=== PATIENT | female | born 2000 | race Caucasian/White ===

== ENCOUNTER 2025-03-11 20:55 | Emergency (ER) | payer BC, SELFPAY ==
[2025-03-11 21:04] VITALS: BP 143/95
[2025-03-11 21:16] VITALS: BP 129/77
[2025-03-11 22:00] VITALS: BP 114/68
--- NOTE | 2025-03-11 22:45 | ED.GENMED ---
History of Present Illness
General
Chief Complaint: Allergic Reaction
Source: patient
Exam Limitations: none
Time Seen by Provider: 03/11/25 22:36
Nursing documentation reviewed up to this point in time: agreed with
History of Present Illness
History of Present Illness:
This is a 24-year-old female with history of tree nut and walnut allergies. She inadvertently consumed walnuts tonight around 6 PM and immediately developed scratchy, itchy throat that then progressed to generalized skin redness and itching. She
did not have her EpiPen with her but did take a dose of Benadryl around 6:30 PM. Throat itching and scratching has improved but has not resolved. Generalized skin redness, itching has improved mildly but has not resolved. She admits to mild
nausea initially which has since resolved. No abdominal pain or diarrhea, no cough no shortness of breath.
She has had similar episodes in the past which generally improve with Benadryl. She has never used her EpiPen.
She takes no medicines on a daily basis.
Denies risk of , last menstrual period normal and on time 3 weeks ago.
Past History
Past History
ED Past Medical History: Other (Tree nut/walnut allergy)
ED Past Surgical History: None
Social History
Tobacco: Non-smoker
Alcohol: Occasional
Personal: Single
Living: with family
Employment: Employed (Teacher)
Family History
Family History: Other (Noncontributory)
Phy Exam
Physical Exam
Physical Exam:
GENERAL: 24-year-old female appears her stated age, bright and alert, pleasant, appears in no acute distress. Intermittently scratching/rubbing at her forearms. 2 girlfriends accompanying.
EYE: anicteric
NECK: Supple, nontender, no meningismus, no significant adenopathy.
ENT: posterior pharynx is clear, oral mucosa is moist. TM clear b/l, nares patent. No angioedema.
CARDIAC: Regular rate and rhythm. no murmur.
LUNGS: Clear breath sounds bilaterally, no acute respiratory distress, no wheezes/rales/rhonchi
ABDOMEN: Soft, nondistended, without focal tenderness, normoactive BS.
NEUROLOGICAL: Alert and oriented x3, no focal neuro deficits.
SKIN: Warm and dry, normal color, skin intact. Mild to moderate erythema globally to upper trunk, upper extremities with patchy erythema to abdomen.
MUSCULOSKELETAL: No C/C/E. peripheral pulses are full and equal b/l. No palpable tenderness.
PSYCH: Normal and appropriate interaction.
Course
Orders/Labs/Results
Orders:
Orders
03/11/25 22:44
EPINEPHrine PF [Adrenalin] 0.3 mg IM NOW STA
Famotidine [Pepcid] 20 mg PO NOW STA
Prednisone [Deltasone] 40 mg PO NOW STA
Vital Signs
Initial and Last Documented VS:
Initial Vital Signs
Temp Pulse Resp BP Pulse Ox
98.4 F 98 18 143/95 100
03/11/25 21:04 03/11/25 21:04 03/11/25 21:04 03/11/25 21:04 03/11/25 21:04
Last Documented Vital Signs
Temp Pulse Resp BP Pulse Ox
98.4 F 84 14 115/71 99
03/11/25 21:04 03/11/25 23:00 03/11/25 23:00 03/11/25 23:00 03/11/25 23:00
MDM/Problems Addressed
Differential Diagnosis Includes:
Patient presents with acute allergic reaction likely related to inadvertent consumption of walnuts�known walnut allergy with similar previous allergic reactions.
Continues with moderate generalized erythema, complaints of scratchy throat but no evidence of angioedema. Hemodynamically stable.
Will give an IM dose of epinephrine now and initiate prednisone as well as Pepcid.
Chronic conditions affecting care: Other (Known tree nut/walnut allergy)
Acute Exacerbation and/or Progression of Chronic Illness: Other (Acute allergic reaction related to walnut consumption)
*Pulse Oximetry
Patient hypoxic: no
*Talent Development Specialist Interpretation
Rate: normal
Interpretation: normal
Rhythm: sinus
*Critical Care Note
Total Time (30-74mins, 75-104mins- exclusive of procedures): Not Applicable
Update Note
Update Note:
23:55
Patient feeling well, near complete resolution of erythematous rash and no further throat discomfort/scratchiness.
She remains hemodynamically stable.
Eager to be discharged to home.
Will prescribe short course of prednisone, Pepcid and recommend a daily antihistamine.
EpiPen has been prescribed as well.
ED Attending Note
-
Portions of this chart may have been created with voice recognition software.� Occasional wrong word or��sound alike� substitutions may have occurred due to the inherent limitations of voice recognition software.
Discharge Plan
Departure
Patient Disposition: Home (Routine Discharge)
Date of Disposition: 03/12/25
Time of Disposition: 00:00
Patient with high blood pressure during this ER visit?: No
Condition: Good
Discharge Problem:
Acute allergic reaction, Allergy to walnuts
Prescriptions:
New
epinephrine [EpiPen 2-Jozef] 0.3 mg/0.3 mL auto-injector
0.3 mg IM Q5-15M PRN (Reason: anaphylaxis) Qty: 2 0RF
famotidine [Pepcid] 40 mg tablet
40 mg PO DAILY Qty: 10 0RF
prednisone 20 mg tablet
40 mg PO DAILY Qty: 10 0RF
No Action
epinephrine [Epi E-Z Pen] 0.3 mg/0.3 mL Auto-Injector
0.3 mg IM Q5-15M PRN (Reason: allergic reaction)
Referrals:
Sathish Kenney CRNP [Family Provider] - As needed
Activity Restrictions/Additional Instructions:
Over the next 5 to 7 days I want you to take a daily antihistamine such as Claritin or Zyrtec.
You have been prescribed a 5-day course of prednisone.
You have also been prescribed a 10-day course of Pepcid, but you can stop this in 5 days if no return of allergy symptoms.
Continue to avoid walnuts, tree nuts.
Keep your EpiPen on hand at all times.
Interventions
Interventions:
*Risk Screen - Suicide Last Done: 03/11/25 21:04
*General Assessment Last Done: 03/11/25 21:04
*Neglect/Abuse Screening Last Done: 03/11/25 21:39
*ED- Fall Risk Assessment Last Done: 03/11/25 21:39
ED- Cardiac Assessment Last Done: 03/11/25 23:32
ED- Pulmonary Assessment Last Done: 03/11/25 23:32
ED-Skin Assessment Last Done: 03/11/25 23:32
Discharge Date and Time
Print Language: CUBAN
[2025-03-11] MEDS: PEPCID 20 MG PO (22:53)
[2025-03-11] MEDS: ADRENALIN 0.3 MG IM (22:53)
[2025-03-11] MEDS: DELTASONE 40 MG PO (22:53)
[2025-03-11 23:00] VITALS: BP 115/71
[2025-03-12] VITALS: BP 126/72
== END 2025-03-12 00:05 | disposition home or self-care (01) ==
LOC: EMR 20:55
PROVIDERS: EMERGENCY PHYSICIAN Emergency Medicine; FAMILY PHYSICIAN Nurse Practitioner Family
DX: T78.1XXA Other adverse food reactions, not elsewhere classified, initial encounter (principal); R09.89 Other specified symptoms and signs involving the circulatory and respiratory systems; L29.9 Pruritus, unspecified; X58.XXXA Exposure to other specified factors, initial encounter; Z91.018 Allergy to other foods
CPT/HCPCS: 96372; 99284